=== PATIENT | female | born 1980 | race Caucasian/White ===

== ENCOUNTER 2017-02-07 19:12 | Emergency (ER) | payer BC, OTHER ==
[~2017-02-07] VITALS: Ht 172.7 cm; Wt 75.7 kg
[2017-02-07 20:17] LABS: BASO # 0.1 x10^3/uL (0.0-0.2); BASO % 1 % (0-3); EOS % 3 % (0-3); HEMATOCRIT 39.3 % (36.0-47.0); HEMOGLOBIN 13.5 g/dL (12.0-15.5); LYMPH # 4.2 x10^3/uL (1.0-4.8); LYMPH % 41 % (24-48); MEAN CORPUSCULAR HEMOGLOBIN 31 pg (25-35); MEAN CORPUSCULAR HGB CONC 34 g/dL (31-37); MEAN CORPUSCULAR VOLUME 89 fL (79-100); MONO % 5 % (0-9); NEUT % 50 % (31-73); PLATELET COUNT 304 x10^3/uL (140-400); RED BLOOD COUNT 4.41 x10^6/uL (3.50-5.40); RED CELL DISTRIBUTION WIDTH 13.1 % (11.5-14.5); WHITE BLOOD COUNT 10.2 x10^3/uL (4.0-11.0)
[2017-02-07] MEDS ORDERED: IPRATRPIUM/ALBUTEROL 0.5/2.5MG 3 ML NEBU. NEB ONE (20:30)
[2017-02-07 20:32] LABS: CALCIUM 9.2 mg/dL (8.5-10.1); GFR 62.4; POTASSIUM 3.6 mmol/L (3.5-5.1)
[2017-02-07] MEDS ORDERED: IOHEXOL 300 MG/ML 75 ML VIAL IV ONE (20:45)
[2017-02-07] MEDS ORDERED: CONTRAST GIVEN MC PRN (20:45)
--- NOTE | 2017-02-07 21:28 | RAD ---
CT pulmonary angiogram with intravenous contrast History: Chest fullness for 4 hours, evaluate for pulmonary embolism Comparison: None. Technique: CT pulmonary angiogram of the chest with attention to the pulmonary arteries was performed after the administration of intravenous contrast, 75 mL of Omnipaque 300. Axial 2-D reconstructions were obtained. Coronal 3-D MIPS were obtained of the pulmonary arterial vasculature of the chest. Exposure: One or more of the following individualized dose reduction techniques were utilized for this examination: 1. Automated exposure control 2. Adjustment of the mA and/or kV according to patient size 3. Use of iterative reconstruction technique Findings: Pulmonary arteries are adequately opacified. There is no evidence of pulmonary embolism. Trachea and proximal bronchi appear patent. Visualized thyroid appears symmetric. No acute airspace disease is identified. No pneumothorax or pleural effusion is seen. No mediastinal lymphadenopathy is seen. Thoracic aorta has normal caliber. Heart and pericardium are unremarkable. Mild residual thymic tissue is seen in the anterior mediastinum. Impression: 1. No evidence of pulmonary embolism. No acute abnormality identified in the chest. Electronically signed by: Roosevelt Jaffe MD (02/07/2017 9:24 PM)
[2017-02-07 21:30] VITALS: BP 108/66
--- NOTE | 2017-02-07 21:32 | ED.ADGEN ---
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 Patient has nasal congestion, occasional dry cough who presents with shortness of breath with conversation and with exertion. Patient runs 5 days a week was unable to run greater than 1 mile today without stopping due to shortness of breath. Denies chest pain, fever, chills, nausea vomiting or sweats. No leg pain or swelling. Patient recently returned from [place] and traveled by air. No higher history of DVT or PE. Patient has an IUD in place. Review of Systems Review of Systems ROS as per HPI. Current Medications Current Medications Current Medications Medications (Trade) Dose Ordered Sig/Bishop Start Time Stop Time Status Last Admin Dose Admin Albuterol/ Ipratropium (Duoneb) 3 ml 1X ONCE 02/07/17 20:30 02/07/17 20:32 DC 02/07/17 20:38 3 ML Info (Do NOT chart on this entry -- for MONITORING) 1 each PRN DAILY PRN 02/07/17 20:45 02/09/17 20:44 Iohexol (Omnipaque 300 Mg/ml) 75 ml 1X ONCE 02/07/17 20:45 02/07/17 20:46 DC 02/07/17 20:52 75 ML Allergies Allergies Allergies Coded Allergies Type Severity Reaction Last Updated Verified morphine Allergy Severe Shortness of Air 02/07/17 Yes Physical Exam Physical Exam Constitutional: No acute distress, anxious with conversational dyspnea and hyperventilation. HENT: Normocephalic, atraumatic, bilateral external ears normal, oropharynx moist, no oral exudates, nose gesturing with mucousy rhinorrhea. Postnasal drip present. Eyes: PERRL. Neck: Normal range of motion, no tenderness, supple. Cardiovascular:Heart rate regular rhythm, no murmur. Negative Homans signs. Lungs & Thorax: Abrasions, tachypnea with mildly diminished breath sounds bilaterally, no rales rhonchi or wheezes. Abdomen: Bowel sounds normal, soft, no tenderness. Skin: Warm, dry, no erythema, no rash Back: No tenderness. Extremities: No tenderness, no cyanosis, no clubbing, ROM intact, no edema. Neurologic: Alert and oriented X 3, normal motor function, normal sensory function, no focal deficits noted. Current Patient Data Vital Signs Vital Signs Date Time Temp Pulse Resp B/P (MAP) Pulse Ox O2 Delivery O2 Flow Rate FiO2 02/07/17 20:40 100 Room Air 02/07/17 19:20 98.5 88 22 149/81 (103) 98.5 Lab Values Laboratory Tests Test 02/07/17 19:19 02/07/17 19:26 POC Urine HCG, Qualitative Hcg negative (Negative) White Blood Count 10.2 x10^3/uL (4.0-11.0) Red Blood Count 4.41 x10^6/uL (3.50-5.40) Hemoglobin 13.5 g/dL (12.0-15.5) Hematocrit 39.3 % (36.0-47.0) Mean Corpuscular Volume 89 fL (79-100) Mean Corpuscular Hemoglobin 31 pg (25-35) Mean Corpuscular Hemoglobin Concent 34 g/dL (31-37) Red Cell Distribution Width 13.1 % (11.5-14.5) Platelet Count 304 x10^3/uL (140-400) Neutrophils (%) (Auto) 50 % (31-73) Lymphocytes (%) (Auto) 41 % (24-48) Monocytes (%) (Auto) 5 % (0-9) Eosinophils (%) (Auto) 3 % (0-3) Basophils (%) (Auto) 1 % (0-3) Neutrophils # (Auto) 5.1 x10^3uL (1.8-7.7) Lymphocytes # (Auto) 4.2 x10^3/uL (1.0-4.8) Monocytes # (Auto) 0.5 x10^3/uL (0.0-1.1) Eosinophils # (Auto) 0.3 x10^3/uL (0.0-0.7) Basophils # (Auto) 0.1 x10^3/uL (0.0-0.2) Sodium Level 138 mmol/L (136-145) Potassium Level 3.6 mmol/L (3.5-5.1) Chloride Level 102 mmol/L (98-107) Carbon Dioxide Level 25 mmol/L (21-32) Anion Gap 11 (6-14) Blood Urea Nitrogen 22 mg/dL (7-20) H Creatinine 1.0 mg/dL (0.6-1.0) Estimated GFR (Cockcroft-Gault) 62.4 Glucose Level 92 mg/dL (70-99) Calcium Level 9.2 mg/dL (8.5-10.1) Laboratory Tests 02/07/17 19:26 Laboratory Tests 02/07/17 19:26 EKG EKG [EKG: Normal sinus rhythm, no acute ST-T wave changes, QTC 466, axis, normal.] Radiology/Procedures Radiology/Procedures [CT angiogram chest: No evidence of pulmonary embolus.] Impressions: d. Course & Med Decision Making Course & Med Decision Making Pertinent Labs and Imaging studies reviewed. (See chart for details) [Mild upper respiratory tract infection with bronchospasm. No findings of embolus on CT anginal chest. DuoNeb and steroids given. Will treat for respiratory tract infection with bronchospasm with PCP follow-up. Return precautions reviewe] Dragon Disclaimer Dragon Disclaimer This electronic medical record was generated, in whole or in part, using a voice recognition dictation system. ANDREZ CARRASQUILLO DO Feb 07, 2017 21:32
[2017-02-07] MEDS ORDERED: predniSONE 10 MG TABLET PO ONE (21:45)
--- NOTE | 2017-02-08 08:43 | EKG ---
[facility] [address] [place] [id number] Test Date: 2017-02-07 Test Time: 19:25:51 Pat Name: CECILE FRENCH Department: Room: Gender: F [employer]: : 1980 Requested By: ANDREZ CARRASQUILLO Order Number: [id number] Reading MD: Sree Curry Measurements Intervals [place] Rate: 83 P: 64 MD: 148 QRS: 56 QRSD: 94 T: 18 QT: 396 QTc: 466 Interpretive Statements SINUS RHYTHM Electronically Signed On 02-08-2017 11:14:53 CDT by Sree Curry
== END 2017-02-07 21:57 | disposition home or self-care (01) ==
LOC: ER 19:12
DX: J06.9 Acute upper respiratory infection, unspecified (principal); J98.01 Acute bronchospasm; F12.10 Cannabis abuse, uncomplicated; Z88.5 Allergy status to narcotic agent
CPT/HCPCS: 36415; 71275; 80048; 81025; 85027; 93005; 94250; 94640; 99285; J7512; J7620; Q9967